=== PATIENT | female | born 1950 | race Caucasian/White ===

== ENCOUNTER 2021-06-24 08:07 | Outpatient (CLI) | payer BC, MEDICARE | END 2021-06-24 08:08 | disposition home or self-care (01) | LOC: CSHMAMMO 08:07 | PROVIDERS: ATTEND Obstetrics & Gynecology | DX: Z12.31 Encounter for screening mammogram for malignant neoplasm of breast (principal); Z80.3 Family history of malignant neoplasm of breast | CPT/HCPCS: 77063; 77067 ==

== ENCOUNTER 2022-07-08 15:27 | Outpatient (CLI) | payer BC, MEDICARE | END 2022-07-08 15:28 | disposition home or self-care (01) | LOC: CSHMAMMO 15:27 | PROVIDERS: ATTEND Obstetrics & Gynecology | DX: Z12.31 Encounter for screening mammogram for malignant neoplasm of breast (principal); Z80.3 Family history of malignant neoplasm of breast | CPT/HCPCS: 77063; 77067 ==

== ENCOUNTER 2023-09-08 15:15 | Outpatient (CLI) | payer BC, MEDICARE | END 2023-09-08 15:16 | disposition home or self-care (01) | LOC: CSHMAMMO 15:15 | PROVIDERS: ATTEND Obstetrics & Gynecology | DX: M85.89 Other specified disorders of bone density and structure, multiple sites (principal) | CPT/HCPCS: 77080 ==

== ENCOUNTER 2023-10-16 11:24 | Outpatient (CLI) | payer BC, MEDICARE | END 2023-10-16 11:25 | disposition home or self-care (01) | LOC: CSHMAMMO 11:24 | PROVIDERS: ATTEND Obstetrics & Gynecology | DX: Z12.31 Encounter for screening mammogram for malignant neoplasm of breast (principal); Z80.3 Family history of malignant neoplasm of breast | CPT/HCPCS: 77063; 77067 ==